=== PATIENT | male | born 1945 | race African-American/Black ===

== ENCOUNTER 2018-06-15 11:14 | Inpatient (IN) | payer MEDICARE, MEDICAID ==
[~2018-06-15] VITALS: Ht 175.3 cm; Wt 54.9 kg
[~2018-06-15 11:14] MED LIST: ALBUTEROL; ASPIRIN; BICALUTAMIDE; CENTRUM; CILOSTAZOL; DIABETIC TUSSIN; DIGOXIN; DILTIAZEM; DONE10TA11; ECONAZOLE; ESOM40CA; IPRATROPIUM BROMIDE; LACTULOSE; LEVEMIR; LIPITOR; LISINOPRIL; MEGE625O3; NOVOLOG; SEE MED SHEET; TYLENOL; VESICARE; VITAMIN B1; [UNRECOGNIZED DRUG - CODE]; [UNRECOGNIZED DRUG - OTHER]
[2018-06-15] MEDS ORDERED: SODIUM CHLORIDE 0.9% 1,000 ML IV ONE (12:45)
[2018-06-15 13:21] LABS: CHLORIDE 110 mEq/L (98-107)
[2018-06-15 13:22] LABS: BASOPHILS % 0.8 % (0.0-2.0); EOSINOPHILS % 1.2 % (0.0-5.0); HEMATOCRIT. 37.1 % (42.0-52.0); HEMOGLOBIN. 12.4 g/dL (14.0-18.0); MEAN CORPUSCULAR HEMOGLOBIN 33.5 pg (28.0-32.0); MEAN CORPUSCULAR VOLUME 100.2 fL (80.0-94.0); MEAN PLATELET VOLUME 8.3 fl (7.4-10.4); MONOCYTES % 6.3 % (2.0-8.0); NEUTROPHILS % 54.7 % (40.0-76.0); PLATELET 386 x1000/uL (130-400); RED CELL DISTRIBUTION WIDTH 14.5 % (11.6-14.6)
[2018-06-15 13:25] LABS: ETHANOL BLOOD < 10 mg/dL
[2018-06-15 13:29] LABS: CREATINE KINASE 45 IU/L (39-308)
[2018-06-15] MEDS ORDERED: MVI, ADULT NO.1 10 ML, FOLIC ACID 1 MG in SODIUM CHLORIDE 0.9% 1,000 ML IV NR ×3 (13:30)
[2018-06-15] MEDS ORDERED: IPRATROPIUM/ALBUTEROL 0.5-3(2.5)MG/3ML NEB INH PRN (13:30)
[2018-06-15] MEDS ORDERED: ACETAMINOPHEN 325MG TABLET PO PRN (13:30)
[2018-06-15] MEDS ORDERED: CLONIDINE 0.1MG TABLET PO PRN (13:30)
[2018-06-15] MEDS ORDERED: ONDANSETRON HCL 4MG/2ML INJ IV PRN (13:30)
[2018-06-15] MEDS ORDERED: THIAMINE HCL 100MG TABLET PO NR (13:45)
[2018-06-15 14:49] LABS: INR 1.1; PROTHROMBIN TIME 10.7 sec (9.1-11.1)
[2018-06-15 15:57] LABS: CLARITY URINE CLOUDY (CLEAR); COLOR URINE YELLOW (YELLOW); KETONES URINE NEGATIVE (NEGATIVE); LEUKOCYTE ESTERASE URINE 3+ (NEGATIVE); NITRITE URINE NEGATIVE (NEGATIVE); OCCULT BLOOD URINE NEGATIVE (NEGATIVE); PROTEIN URINE TRACE (NEGATIVE); SPECIFIC GRAVITY URINE 1.025 (1.005-1.030)
[2018-06-15 16:00] VITALS: BP 144/78
[2018-06-15] MEDS ORDERED: LORAZEPAM 2MG/ML CPJ IV ONE ×2 (16:00)
[2018-06-15 16:08] LABS: *AMPHETAMINES SCREEN URINE NEGATIVE (NEGATIVE); *BARBITURATES SCREEN URINE NEGATIVE (NEGATIVE); *BENZODIAZEPINES SCREEN URINE NEGATIVE (NEGATIVE); *COCAINE SCREEN URINE NEGATIVE (NEGATIVE); OPIATES URINE SCREEN NEGATIVE (NEGATIVE); PHENCYCLIDINE URINE SCREEN NEGATIVE (NEGATIVE)
[2018-06-15 16:09] LABS: CANNABINOID URINE SCREEN PRESUMTIVE POSITIVE (NEGATIVE)
[2018-06-15 16:16] LABS: METHADONE URINE SCREEN NEGATIVE (NEGATIVE)
[2018-06-15 16:17] VITALS: BP 113/76
[2018-06-15 20:00] VITALS: BP 132/81
[2018-06-15] MEDS ORDERED: CEFAZOLIN 1000MG PREMIX 50 ML IV SCH (20:00)
[2018-06-15] MEDS: LORAZEPAM 2MG/ML CPJ IV PRN (20:39)
[2018-06-15] MEDS: CEFAZOLIN 1000MG PREMIX 50 ML IV SCH (20:40)
[2018-06-15] MEDS: ATORVASTATIN CALCIUM 10MG TABLET PO SCH (20:40)
[2018-06-15] MEDS: CILOSTAZOL 100MG TABLET PO SCH (20:40)
[2018-06-15] MEDS ORDERED: LACTULOSE 20G/30ML UDC PO PRN (21:00)
[2018-06-15] MEDS ORDERED: DEXTROSE 50% WATER 50ML SYRINGE IV PRN (23:15)
[2018-06-16] VITALS: BP 171/94
[2018-06-16] MEDS: LORAZEPAM 2MG/ML CPJ IV PRN ×4 (01:39→20:46)
[2018-06-16] MEDS: CEFAZOLIN 1000MG PREMIX 50 ML IV SCH ×2 (04:50→09:18)
[2018-06-16] MEDS: OMEPRAZOLE 20MG CAPSULE EXTENDED RELEASE PO SCH (06:32)
[2018-06-16] MEDS ORDERED: BLOOD SUGAR DIAGNOSTIC STRIP TEST SCH (07:20)
[2018-06-16] MEDS ORDERED: INSULIN LISPRO 100 UNITS/ML SUBCUT SCH (07:50)
[2018-06-16 07:51] LABS: CHLORIDE 113 mEq/L (98-107)
[2018-06-16] MEDS: BLOOD SUGAR DIAGNOSTIC STRIP TEST SCH ×4 (07:51→21:00)
[2018-06-16] MEDS: DEXTROSE 50% WATER 50ML SYRINGE IV PRN ×2 (07:52→13:11)
[2018-06-16 08:00] VITALS: BP 135/72
[2018-06-16 08:04] LABS: BASOPHILS % 0.5 % (0.0-2.0); EOSINOPHILS % 0.5 % (0.0-5.0); HEMATOCRIT. 34.4 % (42.0-52.0); HEMOGLOBIN. 11.7 g/dL (14.0-18.0); LYMPHOCYTES % 18.7 % (20.0-50.0); MEAN CORPUSCULAR HEMOGLOBIN 33.3 pg (28.0-32.0); MEAN CORPUSCULAR VOLUME 97.7 fL (80.0-94.0); MONOCYTES % 6.2 % (2.0-8.0); NEUTROPHILS % 74.1 % (40.0-76.0); PLATELET 386 x1000/uL (130-400); RED BLOOD CELL COUNT 3.52 mill/uL (4.7-6.1); RED CELL DISTRIBUTION WIDTH 13.9 % (11.6-14.6)
[2018-06-16] MEDS: ASPIRIN 81MG EC TABLET PO SCH (09:17)
[2018-06-16] MEDS: DILTIAZEM HCL 120MG CAPSULE CD 24HR PO SCH (09:17)
[2018-06-16] MEDS: CILOSTAZOL 100MG TABLET PO SCH ×2 (09:18→20:44)
[2018-06-16] MEDS: DONEPEZIL HCL 10MG TABLET PO SCH (09:18)
[2018-06-16] MEDS: LOSARTAN POTASSIUM 50 MG TABLET PO SCH (09:18)
[2018-06-16] MEDS: INSULIN LISPRO 100 UNITS/ML SUBCUT SCH ×4 (09:19→21:00)
[2018-06-16] MEDS: PIPERACILLIN/TAZ 3.375G PREMIX 50 ML IV SCH ×3 (11:53→23:19)
[2018-06-16 12:00] VITALS: BP 118/70
[2018-06-16] MEDS: DEXT 5%/0.45% NACL 1000ML 1,000 ML IV SCH (13:30)
[2018-06-16 16:00] VITALS: BP 115/59
[2018-06-16] MEDS: THIAMINE HCL 100MG TABLET PO SCH (17:49)
[2018-06-16 20:00] VITALS: BP 137/76
[2018-06-16] MEDS: ATORVASTATIN CALCIUM 10MG TABLET PO SCH (20:43)
[2018-06-16] MEDS ORDERED: RISPERIDONE 0.25MG TABLET PO SCH (21:00)
[2018-06-16] MEDS ORDERED: TRAZODONE HCL 50MG TABLET PO SCH (21:00)
[2018-06-17] VITALS: BP 140/67
[2018-06-17] MEDS: LORAZEPAM 2MG/ML CPJ IV PRN (01:32)
[2018-06-17 04:00] VITALS: BP 123/73
[2018-06-17] MEDS: PIPERACILLIN/TAZ 3.375G PREMIX 50 ML IV SCH ×4 (04:17→22:15)
[2018-06-17 06:22] LABS: CHLORIDE 110 mEq/L (98-107)
[2018-06-17 06:30] LABS: BASOPHILS % 0.7 % (0.0-2.0); EOSINOPHILS % 0.6 % (0.0-5.0); HEMOGLOBIN. 11.6 g/dL (14.0-18.0); MEAN CORPUSCULAR HEMOGLOBIN 33.4 pg (28.0-32.0); MEAN PLATELET VOLUME 7.8 fl (7.4-10.4); NEUTROPHILS % 70.7 % (40.0-76.0); PLATELET 354 x1000/uL (130-400); RED BLOOD CELL COUNT 3.47 mill/uL (4.7-6.1); RED CELL DISTRIBUTION WIDTH 13.9 % (11.6-14.6)
[2018-06-17 08:00] VITALS: BP 126/71
[2018-06-17] MEDS: BLOOD SUGAR DIAGNOSTIC STRIP TEST SCH ×4 (08:08→20:50)
[2018-06-17 08:36] LABS: VITAMIN B12 SERUM 1938 pg/mL (211-911)
[2018-06-17] MEDS: RISPERIDONE 0.25MG TABLET PO SCH ×2 (09:00→17:36)
[2018-06-17] MEDS: THIAMINE HCL 100MG TABLET PO SCH (09:09)
[2018-06-17] MEDS: DONEPEZIL HCL 10MG TABLET PO SCH (09:09)
[2018-06-17] MEDS: DILTIAZEM HCL 120MG CAPSULE CD 24HR PO SCH (09:09)
[2018-06-17] MEDS: LOSARTAN POTASSIUM 50 MG TABLET PO SCH (09:09)
[2018-06-17] MEDS: ASPIRIN 81MG EC TABLET PO SCH (09:10)
[2018-06-17] MEDS: CILOSTAZOL 100MG TABLET PO SCH ×2 (09:10→20:49)
[2018-06-17] MEDS: INSULIN LISPRO 100 UNITS/ML SUBCUT SCH ×4 (09:13→21:00)
[2018-06-17] MEDS: DEXT 5%/0.45% NACL 1000ML 1,000 ML IV SCH (10:11)
[2018-06-17 12:00] VITALS: BP 89/54
[2018-06-17] MEDS: DEXT 5%/0.9% NACL 1,000 ML IV SCH (12:22)
[2018-06-17 16:00] VITALS: BP 119/62
[2018-06-17 20:00] VITALS: BP 107/62
[2018-06-17] MEDS: ATORVASTATIN CALCIUM 10MG TABLET PO SCH (20:48)
[2018-06-17] MEDS ORDERED: MIRTAZAPINE 15MG TABLET PO SCH (21:00)
[2018-06-18] VITALS: BP 113/61
[2018-06-18 04:00] VITALS: BP 114/63
[2018-06-18] MEDS: PIPERACILLIN/TAZ 3.375G PREMIX 50 ML IV SCH (04:31)
[2018-06-18] MEDS: BLOOD SUGAR DIAGNOSTIC STRIP TEST SCH ×3 (07:20→17:16)
[2018-06-18] MEDS: OMEPRAZOLE 20MG CAPSULE EXTENDED RELEASE PO SCH ×2 (07:20→09:35)
[2018-06-18 07:48] LABS: BASOPHILS % 0.9 % (0.0-2.0); EOSINOPHILS % 1.6 % (0.0-5.0); HEMATOCRIT. 32.5 % (42.0-52.0); HEMOGLOBIN. 11.1 g/dL (14.0-18.0); LYMPHOCYTES % 33.6 % (20.0-50.0); MEAN CORPUSCULAR HEMOGLOBIN 33.4 pg (28.0-32.0); MEAN CORPUSCULAR VOLUME 97.7 fL (80.0-94.0); MEAN PLATELET VOLUME 8.1 fl (7.4-10.4); MONOCYTES % 9.4 % (2.0-8.0); NEUTROPHILS % 54.5 % (40.0-76.0); PLATELET 360 x1000/uL (130-400); RED BLOOD CELL COUNT 3.33 mill/uL (4.7-6.1)
[2018-06-18] MEDS: INSULIN LISPRO 100 UNITS/ML SUBCUT SCH ×3 (07:50→17:17)
[2018-06-18 08:00] VITALS: BP_SYST 131; BP_DIAS 59; BP_DIAS 60
[2018-06-18 08:02] LABS: CHLORIDE 113 mEq/L (98-107)
[2018-06-18] MEDS: DEXT 5%/0.9% NACL 1,000 ML IV SCH (08:15)
[2018-06-18] MEDS ORDERED: SULFAMETHOXAZOLE/TRIMETHOPRIM 800/160MG TABLET PO SCH (09:00)
[2018-06-18] MEDS: ASPIRIN 81MG EC TABLET PO SCH (09:35)
[2018-06-18] MEDS: THIAMINE HCL 100MG TABLET PO SCH (09:35)
[2018-06-18] MEDS: DONEPEZIL HCL 10MG TABLET PO SCH (09:36)
[2018-06-18] MEDS: CILOSTAZOL 100MG TABLET PO SCH (09:36)
[2018-06-18] MEDS: DILTIAZEM HCL 120MG CAPSULE CD 24HR PO SCH (09:36)
[2018-06-18] MEDS: RISPERIDONE 0.25MG TABLET PO SCH (09:36)
[2018-06-18] MEDS: LOSARTAN POTASSIUM 50 MG TABLET PO SCH (09:56)
[2018-06-18 12:00] VITALS: BP_SYST 104; BP_SYST 132; BP_DIAS 58; BP_DIAS 66
[2018-06-18 16:00] VITALS: BP_SYST 125; BP_SYST 97; BP_DIAS 60; BP_DIAS 70
[2018-06-18 16:12] VITALS: BP 125/70
[2018-06-18] MEDS ORDERED: ENOXAPARIN 40MG/0.4ML SYR SUBCUT SCH (18:00)
[2018-06-18] MEDS ORDERED: RISPERIDONE 0.25MG TABLET PO SCH (21:00)
[2018-06-20] MEDS ORDERED: ERGOCALCIFEROL 50000UNITS CAPSULE PO SCH (09:00)
== END 2018-06-18 19:35 | DRG 393 ==
LOC: ER 11:14 → EDBEDREQSVC 13:45 → EDBEDREQ 13:45 → EDBEDREQTM 13:45 → ENRESERV 14:31 → EDBEDREQTM 15:18 → EDBEDREQ 15:18 → 6EST 16:44
PROVIDERS: ADMIT Internal Medicine Geriatric Medicine; ATTEND Internal Medicine Geriatric Medicine
DX: K61.0 Anal abscess (principal); G92 Toxic encephalopathy; N39.0 Urinary tract infection, site not specified; E46 Unspecified protein-calorie malnutrition; R64 Cachexia; Z68.1 Body mass index [BMI] 19.9 or less, adult; E11.65 Type 2 diabetes mellitus with hyperglycemia; E11.42 Type 2 diabetes mellitus with diabetic polyneuropathy; E11.51 Type 2 diabetes mellitus with diabetic peripheral angiopathy without gangrene; E86.0 Dehydration; E78.00 Pure hypercholesterolemia, unspecified; F02.80 Dementia in other diseases classified elsewhere, unspecified severity, without behavioral disturbance, psychotic disturbance, mood disturbance, and anxiety; F12.90 Cannabis use, unspecified, uncomplicated; F17.200 Nicotine dependence, unspecified, uncomplicated; J44.9 Chronic obstructive pulmonary disease, unspecified; G30.9 Alzheimer's disease, unspecified; I11.0 Hypertensive heart disease with heart failure; I48.0 Paroxysmal atrial fibrillation; M19.90 Unspecified osteoarthritis, unspecified site; I50.9 Heart failure, unspecified; N40.0 Benign prostatic hyperplasia without lower urinary tract symptoms; R62.7 Adult failure to thrive; Z86.73 Personal history of transient ischemic attack (TIA), and cerebral infarction without residual deficits; Z89.429 Acquired absence of other toe(s), unspecified side; Z90.79 Acquired absence of other genital organ(s); D50.9 Iron deficiency anemia, unspecified; Z96.1 Presence of intraocular lens; Z98.49 Cataract extraction status, unspecified eye; Z85.46 Personal history of malignant neoplasm of prostate
CPT/HCPCS: 36415; 71045; 80048; 80061; 80305; 82140; 82378; 82550; 82607; 82962; 83036; 83605; 84153; 84443; 84484; 86301; 93005; 93306; 93970; 96374; 97162; 97530; 99285; G0482; J0690; J1815; J2060; J2543; J3490; J7030; J7040; J7042; G0103

== ENCOUNTER 2019-05-28 08:15 | Emergency (ER) | payer MEDICARE, MEDICAID ==
[~2019-05-28] VITALS: Ht 185.4 cm; Wt 77.0 kg
[~2019-05-28 08:15] MED LIST changes: -ALBUTEROL; +ASPI-1158 PO; -ASPIRIN; +ATOR10TA PO; -BICALUTAMIDE; -CENTRUM; +CILO100T PO; -CILOSTAZOL; -DIABETIC TUSSIN; -DIGOXIN; +DILT240T12 PO; -DILTIAZEM; -DONE10TA11; +DONE10TA11 PO; -ECONAZOLE; -ESOM40CA; +GLIM2TAB30 PO; -IPRATROPIUM BROMIDE; -LACTULOSE; -LEVEMIR; -LIPITOR; -LISINOPRIL; +LOSA50TA3 PO; -MEGE625O3; -NOVOLOG; -SEE MED SHEET; +THIA100T72 PO; -TYLENOL; -VESICARE; -VITAMIN B1; -[UNRECOGNIZED DRUG - CODE]; -[UNRECOGNIZED DRUG - OTHER]
[2019-05-28] MEDS ORDERED: KETOROLAC 30MG/ML VIAL IV STA (08:26)
[2019-05-28 08:44] LABS: HEMATOCRIT. 35.3 % (42.0-52.0); HEMOGLOBIN. 12.5 g/dL (14.0-18.0); MEAN CORPUSCULAR HEMOGLOBIN 34.3 pg (28.0-32.0); MEAN CORPUSCULAR VOLUME 97.2 fL (80.0-94.0); MEAN PLATELET VOLUME 7.8 fl (7.4-10.4); PLATELET 236 x1000/uL (130-400); RED BLOOD CELL COUNT 3.63 mill/uL (4.7-6.1); RED CELL DISTRIBUTION WIDTH 13.8 % (11.6-14.6)
[2019-05-28 08:49] LABS: CHLORIDE 104 mEq/L (98-107)
[2019-05-28 08:50] LABS: PROTHROMBIN TIME 10.5 sec (9.6-11.0)
[2019-05-28 10:00] LABS: PLATELET ESTIMATE NORMAL
[2019-05-28 10:59] VITALS: BP 106/57
== END 2019-05-28 11:02 | disposition home or self-care (01) ==
LOC: ER 08:15
DX: R10.84 Generalized abdominal pain (principal); R42 Dizziness and giddiness; R11.0 Nausea; E11.9 Type 2 diabetes mellitus without complications; I10 Essential (primary) hypertension; F12.10 Cannabis abuse, uncomplicated; Z79.82 Long term (current) use of aspirin; Z79.899 Other long term (current) drug therapy
CPT/HCPCS: 36415; 74176; 80053; 83690; 85025; 85610; 96374; 99284; J1885